=== PATIENT | female | born 1970 | race Caucasian/White ===

== ENCOUNTER 2016-06-01 13:10 | Emergency (ER) | payer SELFPAY ==
[~2016-06-01] VITALS: Ht 162.6 cm; Wt 88.5 kg
[2016-06-01 13:26] VITALS: BP 110/68
--- NOTE | 2016-06-01 13:40 | PHYS DOC ---
Past Medical History Past Medical History: No Pertinent History Past Surgical History: Additional Past Surgical Histo: x3 Alcohol Use: None Drug Use: None Adult General Chief Complaint Chief Complaint: COUGH HPI HPI Patient is a 45 year old male presents emergency department stating that she's had a cough congestion and sinus pressure and pain with headache when she coughs. She states this is been going on since last . She's been taken [id number] medication without relief such as DayQuil and NyQuil. She states that tonight she has increased drainage and increased cough. Patient states she has not taken the influenza vaccination. Review of Systems Review of Systems Constitutional: A stray fever Eyes: Denies change in visual acuity, redness, or eye pain [] HENT: nasal congestion and sore throat [] Respiratory: cough denies shortness of breath [] Cardiovascular: No additional information not addressed in HPI [] GI: Denies abdominal pain, nausea, vomiting, bloody stools or diarrhea [] : Denies dysuria or hematuria [] Musculoskeletal: Denies back pain or joint pain [] Integument: Denies rash or skin lesions [] Neurologic: headache, denies focal weakness or sensory changes [] Allergies Allergies Allergies Coded Allergies Type Severity Reaction Last Updated Verified No Known Drug Allergies 03/31/14 No Physical Exam Physical Exam Constitutional: Well developed, well nourished, no acute distress, non-toxic appearance. [] HENT: Normocephalic, atraumatic, bilateral external ears normal, oropharynx moist, no oral exudates, nose normal. Bilateral tympanic membranes appear to be normal. Throat with erythematous and postnasal drip noted. No tenderness noted over the frontal and maxillary sinus areas. Eyes: PERRLA, EOMI, conjunctiva normal, no discharge. [] Neck: Normal range of motion, no tenderness, supple, no stridor. [] Cardiovascular:Heart rate regular rhythm, no murmur [] Lungs & Thorax: Bilateral breath sounds clear to auscultation [] Skin: Warm, dry, no erythema, no rash. [] Back: No tenderness Extremities: No tenderness, no cyanosis, no clubbing, ROM intact, no edema. [] Neurologic: Alert and oriented X 3, normal motor function, normal sensory function, no focal deficits noted. [] Psychologic: Affect normal, judgement normal, mood normal. [] Current Patient Data Vital Signs Vital Signs Date Time Temp Pulse Resp B/P Pulse Ox O2 Delivery O2 Flow Rate FiO2 06/01/16 13:26 98.0 81 18 99 Room Air 98.0 Lab Values Laboratory Tests Test 06/01/16 13:32 Influenza Type A Antigen Negative (NEGATIVE) Influenza Type B Antigen Negative (NEGATIVE) EKG EKG [] Radiology/Procedures Radiology/Procedures [] Course & Med Decision Making Course & Med Decision Making Pertinent Labs and Imaging studies reviewed. (See chart for details) Patient will be treated for sinusitis. She has refused to have a chest x-ray completed. Patient will be placed on Augmentin recommendations for Sudafed and Mucinex M. Recommended plenty of fluids such as water or cranberry juice or propel. Patient will be discharged home in stable condition signs symptoms to return back to emergency department as been provided. Patient agrees with discharge instructions treatment regimens and follow-up recommendations. [] Dragon Disclaimer Dragon Disclaimer This electronic medical record was generated, in whole or in part, using a voice recognition dictation system. Departure Departure Impression: Primary Impression: Sinusitis Disposition: HOME, SELF-CARE Condition: STABLE Referrals: NO PCP (PCP) Patient Instructions: Sinusitis, [id number] Additional Instructions: Activity as tolerated. Tylenol or ibuprofen for fever chills generalized body aches and discomfort as well as headache. Mucinex DM [id number] as prescribed by senior contracts administrator. Sudafed as prescribed by senior contracts administrator [id number]. Drink plenty of fluids such as water, cranberry juice, propel. Medication as prescribed. Follow-up to primary care physician next week. Return back to emergency prior signs symptoms of become worse. Scripts Amoxicillin/Potassium Clav (Augmentin 875-125 Tablet)1 Each Tablet1 Tab PO BID # 20 TAB Prov:JORDAN LORENZANA NP 06/01/16 JORDAN LORENZANA NP Jun 01, 2016 13:40
[2016-06-01 14:10] LABS: OBC FLU VALID
[2016-06-01] MEDS ORDERED: AMOX1TAB61 PO (14:24)
[2016-06-01 14:41] LABS: NEGATIVE OBC STREP NEG; POSITIVE OBC STREP POS
== END 2016-06-01 14:30 | disposition home or self-care (01) ==
LOC: ER 13:10
DX: J32.9 Chronic sinusitis, unspecified (principal)
CPT/HCPCS: 87070; 87804; 87880; 99284

== ENCOUNTER 2016-09-03 19:37 | Emergency (ER) | payer SELFPAY ==
[~2016-09-03] VITALS: Ht 162.6 cm; Wt 88.5 kg
[~2016-09-03 19:37] MED LIST: AMOX1TAB61 PO
[2016-09-03 19:50] VITALS: BP 118/85
[2016-09-03] MEDS ORDERED: CYCL10TA2 PO (20:01)
--- NOTE | 2016-09-03 20:01 | PHYS DOC ---
Past Medical History Past Medical History: No Pertinent History Past Surgical History: Additional Past Surgical Histo: x3 Alcohol Use: None Drug Use: None Adult General Chief Complaint Chief Complaint: Neck Pain HPI HPI Patient is a 45 year old female resents to emergency department stating that she woke up Wednesday morning and she had a sore neck. She states at first she thought she was going to be getting strep throat although the pain has developed more in her upper back lower neck area. Denies any numbness tingling or any change in her sensation in her upper extremities. Patient states she did miss work today and as she has missed work the pain has progressively gotten worse. Patient states she's taken Tylenol for the pain and discomfort with no relief. Patient states she feels as though his muscles are swollen and very tender. She does have decreased range of motion of her neck in which she is unable to completely turn her head to the right. She is unable to put her chin to her chest., Chills or any vomiting. She denies any sensitivity to light. Review of Systems Review of Systems Constitutional: Denies fever or chills [] Eyes: Denies change in visual acuity, redness, or eye pain [] HENT: Denies nasal congestion or sore throat [] Respiratory: Denies cough or shortness of breath [] Cardiovascular: No additional information not addressed in HPI [] GI: Denies abdominal pain, nausea, vomiting, bloody stools or diarrhea [] : Denies dysuria or hematuria [] Musculoskeletal: upper back pain/neck discomfort denies joint pain [] Integument: Denies rash or skin lesions [] Neurologic: Denies headache, focal weakness or sensory changes [] Endocrine: Denies polyuria or polydipsia [] Allergies Allergies Allergies Coded Allergies Type Severity Reaction Last Updated Verified No Known Drug Allergies 03/31/14 No Physical Exam Physical Exam Constitutional: Well developed, well nourished, no acute distress, non-toxic appearance. [] HENT: Normocephalic, atraumatic, bilateral external ears normal, oropharynx moist, no oral exudates, nose normal. [] Eyes: PERRLA, EOMI, conjunctiva normal, no discharge. [] Neck: Normal range of motion, no tenderness, supple, no stridor. [] Cardiovascular:Heart rate regular rhythm, no murmur [] Lungs & Thorax: Bilateral breath sounds clear to auscultation [] Abdomen: Bowel sounds normal, soft, no tenderness, no masses, no pulsatile masses. [] Skin: Warm, dry, no erythema, no rash. [] Back: bilateral upper back tenderness with neck tenderness. Patient with decrease ROM of the neck. Unable to place chin to chest, unable to turn the head completely to the right. Extremities: No tenderness, no cyanosis, no clubbing, ROM intact, no edema. [] Neurologic: Alert and oriented X 3, normal motor function, normal sensory function, no focal deficits noted. [] Psychologic: Affect normal, judgement normal, mood normal. [] Current Patient Data Vital Signs Vital Signs Date Time Temp Pulse Resp B/P (MAP) Pulse Ox O2 Delivery O2 Flow Rate FiO2 09/03/16 19:50 98.6 107 20 96 Room Air 98.6 EKG EKG [] Radiology/Procedures Radiology/Procedures [] Course & Med Decision Making Course & Med Decision Making Pertinent Labs and Imaging studies reviewed. (See chart for details) Patient was recommended to use ibuprofen 800 g every 8 hours with food stop taking few develop upset stomach. Patient will be provided with Flexeril which she was instructed will cause drowsiness do not take any be alert and oriented. Patient was also encouraged to use ice packs on 20 minutes off 20 minutes several times a day. Since symptoms to return back to emergency department been provided. Patient was encouraged to follow-up with her primary care physician in the next 7-10 days. [] Dragon Disclaimer Dragon Disclaimer This electronic medical record was generated, in whole or in part, using a voice recognition dictation system. Departure Departure Impression: Primary Impression: Torticollis, acute Disposition: 01 HOME, SELF-CARE Condition: STABLE Referrals: NO PCP (PCP) Patient Instructions: Torticollis, Acute Additional Instructions: Activity as tolerated. Ice packs on 20 minutes off 20 minutes several times a day. Ibuprofen 800 mg every 8 hours this will help with inflammation and swelling. Take this medication with food. Stop taking few develop an upset stomach. Flexeril will cause drowsiness do not take any be alert and oriented. Follow-up through primary care physician in the next 7-10 days. Return back to emergency department sign symptoms of become worse. Scripts Cyclobenzaprine Hcl (CYCLOBENZAPRINE HCL) 10 Mg Tablet 10 MG PO TID, #30 TAB Prov: JORDAN LORENZANA APRN 09/03/16 JORDAN LORENZANA APRN Sep 03, 2016 20:01
== END 2016-09-03 20:05 | disposition home or self-care (01) ==
LOC: ER 19:37
DX: M43.6 Torticollis (principal)
CPT/HCPCS: 99283